=== PATIENT | male | born 1990 | race Asian ===

== ENCOUNTER 2018-12-21 11:50 | Outpatient (CLI) | payer OTHER ==
[2018-12-21 12:57] LABS: BASOPHILS # (AUTO) 0.1 K/uL (0.00-0.22); EOSINOPHILS # (AUTO) 0.2 K/uL (0-0.4); EOSINOPHILS % (AUTO) 2.8 % (0.0-4.0); HEMATOCRIT 46.4 % (36-52); HEMOGLOBIN 15.5 g/dL (12.0-18.0); LYMPHOCYTES # (AUTO) 1.8 K/uL (2.0-11.5); LYMPHOCYTES % (AUTO) 32.5 % (20.5-51.1); MEAN CORPUSCULAR HEMOGLOBIN 30 pg (27-31); MEAN CORPUSCULAR HGB CONC 33 g/dL (33-37); MONOCYTES # (AUTO) 0.4 K/uL (0.8-1.0); MONOCYTES % (AUTO) 6.5 % (1.7-9.3); NEUTROPHILS # (AUTO) 3.2 K/uL (1.8-7.7); NEUTROPHILS % (AUTO) 57.2 % (42.2-75.2); PLATELET COUNT (AUTO) 203 K/uL (140-450); RED BLOOD CELL COUNT(AUTO) 5.21 MIL/uL (4.20-6.10); RED CELL DISTRIBUTION WIDTH 12.7 % (11.6-13.7); WHITE BLOOD COUNT (AUTO) 5.6 K/uL (4.8-10.8)
[2018-12-21 13:05] LABS: APPEARANCE,URINE CLEAR (CLEAR); BILIRUBIN,URINE NEGATIVE (NEGATIVE); BLOOD, URINE NEGATIVE (NEGATIVE); COLOR,URINE YELLOW (YELLOW); LEUKOCYTE ESTERASE ,URINE NEGATIVE (NEGATIVE); NITRITE, URINE NEGATIVE (NEGATIVE); UGLUCOSE NEGATIVE (NEGATIVE)
[2018-12-21 13:20] LABS: ALBUMIN 4.3 g/dL (3.4-5.0); ANION GAP 11.3 (8-16); CARBON DIOXIDE 28.9 mmol/L (21-32); CREATININE 1.1 mg/dL (0.7-1.3); FREE T4 (FREE THYROXINE) 1.08 ng/dL (0.76-1.46); POTASSIUM 4.2 mmol/L (3.5-5.1); THYROID STIMULATING HORMONE 2.26 uIU/mL (0.34-3.74); TOTAL BILIRUBIN 0.7 mg/dL (0.0-1.0)
== END 2018-12-21 20:11 | disposition home or self-care (01) ==
LOC: MLB 11:50
DX: Z13.1 Encounter for screening for diabetes mellitus (principal); Z13.0 Encounter for screening for diseases of the blood and blood-forming organs and certain disorders involving the immune mechanism; Z13.220 Encounter for screening for lipoid disorders; Z13.29 Encounter for screening for other suspected endocrine disorder; Z13.228 Encounter for screening for other metabolic disorders
CPT/HCPCS: 36415; 80053; 81003; 83036; 84439; 84443; 85025

== ENCOUNTER 2019-01-18 16:20 | Outpatient (CLI) | payer OTHER | END 2019-01-18 19:21 | disposition home or self-care (01) | LOC: MRD 16:20 | DX: M17.0 Bilateral primary osteoarthritis of knee (principal) | CPT/HCPCS: 73565 ==

== ENCOUNTER 2020-04-16 13:56 | Emergency (ER) | payer OTHER ==
[~2020-04-16] VITALS: Ht 172.7 cm; Wt 77.6 kg
[2020-04-16 13:59] VITALS: BP 129/73
--- NOTE | 2020-04-16 14:02 | NUR ---
PT AMBULATED TO BED 2.
--- NOTE | 2020-04-16 14:05 | NUR ---
29/M c/o head pain to top of head s/p head injury last night. Pt reports a wooden plant fell onto head while he was putting up a tv. Pt denies any LOC. Pt complains of dizziness s/p head injury last night. Pt states there was blood last night. Abrasion noted to top of head, no active bleeding noted. Pt states the dizziness has improved, denies feeling sick today. Pt reports having numbness and tingling to both hands. Speech intact, clear. Hx denies
[2020-04-16 15:02] VITALS: BP 125/69
--- NOTE | 2020-04-16 15:04 | NUR ---
CLEARED FOR D/C BY DR MONTGOMERY; D/C WITH INSTRUCTIONS ON HEAD INJURY; PT FULLY UNDERSTANDS ALL MATERIALS GIVEN RE C/C; HAS NO FURTHER QUESTIONS; AOX4; VSS; AMBULATORY WITH STEADY GAIT; NO SIGNS OF ACUTE DISTRESS
== END 2020-04-16 15:04 | disposition home or self-care (01) ==
LOC: MED 13:56
DX: S01.00XA Unspecified open wound of scalp, initial encounter (principal); R42 Dizziness and giddiness; Z98.890 Other specified postprocedural states; W20.8XXA Other cause of strike by thrown, projected or falling object, initial encounter; Y93.89 Activity, other specified; Y92.89 Other specified places as the place of occurrence of the external cause; Y99.8 Other external cause status
CPT/HCPCS: 90471; 90715; 99283

== ENCOUNTER 2021-09-21 16:49 | Emergency (ER) | payer OTHER ==
[~2021-09-21] VITALS: Ht 172.7 cm; Wt 84.1 kg
[2021-09-21 17:01] VITALS: BP 139/78
--- NOTE | 2021-09-21 19:04 | NUR ---
PATIENT IS IN ROOM 4.
[2021-09-21] MEDS ORDERED: PRED20TA5 PO (19:17)
--- NOTE | 2021-09-21 19:19 | NUR ---
REPORT GIVEN TO JOSE SHELDON
--- NOTE | 2021-09-21 19:23 | NUR ---
Chart checked and completed. The patient's care was reviewed and supervised by Lorna Martini RN.
== END 2021-09-21 19:22 | disposition home or self-care (01) ==
LOC: MED 16:49
DX: R05.9 Cough, unspecified (principal)
CPT/HCPCS: 71045; 99283

== ENCOUNTER 2022-09-02 12:12 | Outpatient (CLI) | payer OTHER ==
[~2022-09-02 12:12] MED LIST: PRED20TA5 PO
[2022-09-02 13:38] LABS: CHOL/HDL RATIO 5.6 (1-4.5)
== END 2022-09-02 20:04 | disposition home or self-care (01) ==
LOC: MLB 12:12
PROVIDERS: ATTEND Internal Medicine
DX: M17.11 Unilateral primary osteoarthritis, right knee (principal); M25.761 Osteophyte, right knee; R73.09 Other abnormal glucose; M25.561 Pain in right knee
CPT/HCPCS: 36415; 73562

== ENCOUNTER → 2023-09-14 | Outpatient (CLI) | payer OTHER ==
[2023-09-14 12:51] LABS: ALBUMIN 4.1 g/dL (3.4-5.0); ANION GAP 11.7 (8-16); CALCIUM 9.1 mg/dL (8.5-10.1); CARBON DIOXIDE 28.1 mmol/L (21-32); CHOL/HDL RATIO 4.8 (1-4.5); CREATININE 1.2 mg/dL (0.6-1.3); POTASSIUM 3.8 mmol/L (3.5-5.1); TOTAL BILIRUBIN 0.8 mg/dL (0.0-1.0); TOTAL PROTEIN, SERUM 7.9 g/dL (6.4-8.2)
== END | disposition home or self-care (01) ==
LOC: MLB 12:09
PROVIDERS: ATTEND Internal Medicine
DX: E78.5 Hyperlipidemia, unspecified (principal); I10 Essential (primary) hypertension
CPT/HCPCS: 36415; 80053

== ENCOUNTER 2023-10-26 12:01 | Outpatient (CLI) | payer OTHER | END 2023-10-26 19:07 | disposition home or self-care (01) | LOC: MRD 12:01 | PROVIDERS: ATTEND Internal Medicine Pulmonary Disease | DX: R05.9 Cough, unspecified (principal) | CPT/HCPCS: 71046 ==